=== PATIENT | male | born 1970 | race Two or more races ===

== ENCOUNTER 2020-07-22 04:56 | Emergency (ER) | payer OTHER ==
[~2020-07-22] VITALS: Ht 167.6 cm; Wt 68.0 kg
--- NOTE | 2020-07-22 05:13 | NUR ---
Patient came to er bed 10 c/o seeing bugs on his skin. Patient states that he has bugs in his mouth as well. Patient is Alert and oriented x3. Denies Shortness of Breath. breathing evenly and unlabored on room air. connected to the monitor.
--- NOTE | 2020-07-22 05:24 | NUR ---
component prep operator at bedside for blood draw
[2020-07-22 05:34] LABS: BASOPHILS % (AUTO) 0.6 % (0.0-2.0); EOSINOPHILS % (AUTO) 0.2 % (0.0-6.0); HEMATOCRIT 39 % (39-51); HEMOGLOBIN 12.1 g/dL (13.5-17.5); LYMPHOCYTES # (AUTO) 0.9 /CMM (0.8-4.8); LYMPHOCYTES % (AUTO) 14.6 % (20.0-44.0); MEAN CORPUSCULAR HGB CONC 31 g/dl (31.0-36.0); MEAN CORPUSCULAR VOLUME 82 fL (80-96); MONOCYTES # (AUTO) 0.4 /CMM (0.1-1.30); MONOCYTES % (AUTO) 6.9 % (2.0-12.0); NEUTROPHILS # (AUTO) 4.7 /CMM (1.8-8.9); NEUTROPHILS % (AUTO) 77.7 % (43.0-81.0); PLATELET COUNT (AUTO) 258 /CMM (150-450); RED BLOOD CELL COUNT(AUTO) 4.73 MIL/uL (4.5-6.0)
[2020-07-22 05:43] LABS: CALCIUM, SERUM 8.5 mg/dL (8.5-10.1); CARBON DIOXIDE 29 mmol/L (21-32); CHLORIDE 100 mmol/L (98-107); CREATININE 1.2 mg/dL (0.6-1.3); GLUCOSE 80 mg/dL (74-106); POTASSIUM 3.3 mmol/L (3.5-5.1); SODIUM SERUM 138 mmol/L (136-145); UREA NITROGEN, BLOOD 21 mg/dL (7-18)
[2020-07-22 06:04] LABS: ALANINE AMINOTRANSFERASE 63 U/L (12-78); ALBUMIN 2.9 g/dL (3.4-5.0); ALCOHOL, BLOOD 28 mg/dL (0-0); ALKALINE PHOSPHATASE 680 U/L (46-116); ASPARTATE AMINOTRANSFERASE 94 U/L (15-37); BILIRUBIN,DIRECT 1.3 mg/dL (0.0-0.2); BILIRUBIN,TOTAL 2.8 mg/dL (0.2-1.0); TOTAL PROTEIN, SERUM 6.8 g/dL (6.4-8.2)
[2020-07-22 06:05] LABS: ACETAMINOPHEN 0 ug/ml (10-30)
[2020-07-22 08:44] LABS: BILIRUBIN,URINE SMALL (NEGATIVE); COLOR,URINE YELLOW (YELLOW); LEUKOCYTE ESTERASE ,URINE Negative (NEGATIVE); NITRITE, URINE Negative (NEGATIVE); PROTEIN,URINE >=300 mg/dl (NEGATIVE); UGLUCOSE Negative (NEGATIVE)
[2020-07-22 08:45] LABS: BACTERIA,URINE Rare /HPF (None Seen); SQUAMOUS EPITHELIAL CELL,UR Rare /HPF (None Seen); WBC,URINE 0-2 /HPF (0-3)
[2020-07-22] MEDS ORDERED: LORAZEPAM 1 MG TABLET PO ONE (09:00)
[2020-07-22] MEDS ORDERED: LORAZEPAM 1 MG TABLET ONE (09:01)
--- NOTE | 2020-07-22 10:59 | NUR ---
Physical Therapy Technician consultation: SERVICE CENTER REPRESENTATIVE consultation requested for homelessness. Patient is a 49 year old male who came to the ED for multiple complaints. This SERVICE CENTER REPRESENTATIVE met with the patient at bedside in the ED. Patient is awake, oriented, receptive to speaking with this SERVICE CENTER REPRESENTATIVE. Patient states he is currently living at [facility] in [place]. Patient stated he has been there for about 1-2 weeks, and prior to that he was living on the streets. Patient states he cannot recall the address, but knows how to get there by bus. Patient reports being independent with ADL's. Patient reports hx of alcoholism, and states he drank 1/2 a can of malt liquor before coming to the hospital, however per ED physician's notes, patient reported to the ED physician that he was drinking heavily 5-6 hours prior to arrival to the ED. Patient denies use of drugs, however per toxicology report, patient tested positive for amphethamines. Patient reports smoking 1 pack of cigarettes over a span of 3-4 days. This SERVICE CENTER REPRESENTATIVE assessed patient's needs for community resources and offered patient the homeless community resource packet, but patient declined and stated that he will be returning to [facility] and that they provide him with everything he needs. Patient asked for transportation assistance, and this SERVICE CENTER REPRESENTATIVE stated that patient can be provided with a one-day metro bus pass. Patient expressed agreement. Patient was cooperative with this SERVICE CENTER REPRESENTATIVE throughout this interview. Speech was clear, tone of voice was appropriate. Towards the end of this interview, patient kept on dosing off, and SERVICE CENTER REPRESENTATIVE needed to call out patient's name a couple of time in order for patient to remain engaged in dialogue. Patient denied SI and HI. No further SS interventions needed at this time, as patient has declined resources and stated he will return to his previous living arrangement. This SERVICE CENTER REPRESENTATIVE informed RN Crista that patient has requested for a bus pass. Crista stated that she will provide patient with one.
--- NOTE | 2020-07-22 11:34 | NUR ---
This PARAMEDIC met with the patient to obtain signature on the homeless patient waiver form. Patient signed the waiver form, declining resources and wanting to return to previous living arrangement. Signed waiver was filed in the patient's ED chart.
[2020-07-22 12:01] VITALS: BP 137/85
--- NOTE | 2020-07-22 12:01 | NUR ---
dPatient discharged to home in stable condition. Written and verbal after care instructions given. Patient verbalizes understanding of instruction.
== END 2020-07-22 12:02 | disposition home or self-care (01) ==
LOC: ER 04:58
DX: F10.10 Alcohol abuse, uncomplicated (principal); F15.10 Other stimulant abuse, uncomplicated; R20.2 Paresthesia of skin; Y90.1 Blood alcohol level of 20-39 mg/100 ml; Z59.0 Homelessness
CPT/HCPCS: 36415; 80048; 80076; 80143; 80307; 80320; 81001; 85025; 99283; J7030; G0480

== ENCOUNTER 2020-09-15 09:10 | Emergency (ER) | payer OTHER ==
[~2020-09-15] VITALS: Ht 167.6 cm; Wt 65.8 kg
[2020-09-15 09:27] VITALS: BP 144/88
--- NOTE | 2020-09-15 10:40 | NUR ---
Patient discharged with [employer] in stable condition. Written and verbal after care instructions given. Patient verbalizes understanding of instruction.
== END 2020-09-15 10:40 ==
LOC: ER 09:11
DX: F45.8 Other somatoform disorders (principal); R51.9 Headache, unspecified; F10.10 Alcohol abuse, uncomplicated; F17.200 Nicotine dependence, unspecified, uncomplicated; Y90.9 Presence of alcohol in blood, level not specified; Z20.89 Contact with and (suspected) exposure to other communicable diseases
CPT/HCPCS: 70450-TC; 71045-TC; 72125-TC